=== PATIENT | male | born 1940 | race American Indian/Alaskan Native ===

== ENCOUNTER 2021-01-03 18:55 | Emergency (ER) | payer SELFPAY ==
[2021-01-03 19:26] VITALS: BP 151/55
--- NOTE | 2021-01-03 19:47 | Emergency Department Report ---
ED General Adult HPI - General Chief complaint: Extremity Injury, Lower Stated complaint: DRAINAGE TO LEFT FOOT PUI?: No Time Seen by Provider: 01/03/21 19:04 Source: patient, EMS, RN notes reviewed, old records reviewed Mode of arrival: Stretcher Limitations: Physical Limitation - History of Present Illness Initial comments: The patient was evaluated in the emergency department for symptoms described in the history of present illness. He/she was evaluated in the context of the global COVID-19 pandemic, which necessitated consideration that the patient might be at risk for infection with the virus that causes COVID-19. I nstitutional protocols and algorithms that pertain to the evaluation of patients at risk for COVID-19 are in a state of rapid change based on information released by regulatory bodies including the CDC and federal and state organizations. These policies and algorithms were followed during the patient's care in the emergency department. Please note that these policies, procedures and recommendations changed on a rapid basis. The patient is an 80-year-old gentleman. He is not known to myself previously. He apparently has a history of "memory issues", diabetes, elephantiasis, and a chronic left lower extremity wound. The patient was referred to the emergency room by local family practice/primary care nurse practitioner for chronic and asymptomatic left lower extremity wound. Apparently, this was the patient's first visit with this provider. The patient denies headache, neck pain, chest pain, abdominal pain. He has chronic shortness of breath which is not a new, worsened or different, and exacerbated when he simply "gets up and walks around." Patient reports he is typically ambu latory with a cane or a walker. Patient reports that he has a chronic diagnosis of wound to his left lower extremity, as well as elephantiasis. He was previously being seen at the [facility]. It is not known if the primary care provider that he had today had access to his old medical records. The patient states his left lower extremity appears to be at baseline. He denies fever, pain, redness, pus, streaking, and new/different discharge. He denies loss of taste and smell, urinary symptoms, hematemesis and bright red blood per rectum. The patient himself endorses no acute medical complaints. -: week(s), month(s) Location: left, lower extremity Consistency: constant Improves with: none Worsens with: none Associated Symptoms: denies other symptoms - Related Data Home Medications Medication Instructions Recorded Confirmed Last Taken Amlodipine Benzoate [Katerzia] 10 mg PO DAILY 01/03/21 01/03/21 Unknown Aspirin [Adult Aspirin] 81 mg PO DAILY 01/03/21 01/03/21 Unknown Atorvastatin Calcium [Lipitor] 80 mg PO DAILY 01/03/21 01/03/21 Unknown Cyanocobalamin [Vitamin B-12] 1,000 mg PO DAILY 01/03/21 01/03/21 Unknown Finasteride 5 mg PO DAILY 01/03/21 01/03/21 Unknown Insulin Aspart (Nf) [Novolog 5 unit SQ TID 01/03/21 01/03/21 Unknown Flexpen] Insulin Glargine,Hum.rec.anlog 20 unit SQ HS 01/03/21 01/03/21 Unknown [Lantus Solostar] Omeprazole 20 mg PO DAILY 01/03/21 01/03/21 Unknown Quetiapine Fumarate [SEROquel XR] 12.5 mg PO DAILY 01/03/21 01/03/21 Unknown Tamsulosin [Flomax] 0.4 mg PO BID 01/03/21 01/03/21 Unknown carvediloL [Coreg] 3.125 mg PO BID 01/03/21 01/03/21 Unknown Previous Rx's Medication Instructions Recorded Last Taken Type Docusate Sodium [Colace] 100 mg PO BID PRN #30 capsule 01/03/21 Unknown Rx Ferrous Sulfate [Iron 325 MG] 325 mg PO BID #60 tablet 01/03/21 Unknown Rx Magnesium Oxide 400 mg PO QDAY #30 tablet 01/03/21 Unknown Rx Allergies Allergy/AdvReac Type Severity Reaction Status Date / Time No Known Allergies Allergy Verified 01/03/21 19:48 ED Review of Systems ROS: Stated complaint: DRAINAGE TO LEFT FOOT Other details as noted in HPI Constitutional: denies: fever Eyes: denies: eye discharge ENT: denies: epistaxis Respiratory: denies: cough, wheezing Cardiovascular: denies: chest pain Gastrointestinal: denies: abdominal pain, nausea, vomiting, hematemesis, melena, hematochezia Genitourinary: denies: dysuria Musculoskeletal: joint swelling, other (Chronic left lower extremity swelling, discoloration) Skin: other (Chronic discoloration) Neurological: weakness (Chronic) Hematological/Lymphatic: denies: easy bleeding ED Past Medical Hx - Past Medical History Previous Medical History?: Yes Hx Hypertension: Yes Hx Diabetes: Yes (Type 2) Additional medical history: Cellulitis left lower ext, Gastro Reflux, Hyperlipidemia, Prostatic hyperplasia, - Surgical History Past Surgical History?: No - Social History Smoking Status: Former Smoker Substance Use Type: None - Medications Home Medications: Home Medications Medication Instructions Recorded Confirmed Last Taken Type Amlodipine Benzoate [Katerzia] 10 mg PO DAILY 01/03/21 01/03/21 Unknown History Aspirin [Adult Aspirin] 81 mg PO DAILY 01/03/21 01/03/21 Unknown History Atorvastatin Calcium [Lipitor] 80 mg PO DAILY 01/03/21 01/03/21 Unknown History Cyanocobalamin [Vitamin B-12] 1,000 mg PO DAILY 01/03/21 01/03/21 Unknown History Docusate Sodium [Colace] 100 mg PO BID PRN #30 capsule 01/03/21 Unknown Rx Ferrous Sulfate [Iron 325 MG] 325 mg PO BID #60 tablet 01/03/21 Unknown Rx Finasteride 5 mg PO DAILY 01/03/21 01/03/21 Unknown History Insulin Aspart (Nf) [Novolog 5 unit SQ TID 01/03/21 01/03/21 Unknown History Flexpen] Insulin Glargine,Hum.rec.anlog 20 unit SQ HS 01/03/21 01/03/21 Unknown History [Lantus Solostar] Magnesium Oxide 400 mg PO QDAY #30 tablet 01/03/21 Unknown Rx Omeprazole 20 mg PO DAILY 01/03/21 01/03/21 Unknown History Quetiapine Fumarate [SEROquel XR] 12.5 mg PO DAILY 01/03/21 01/03/21 Unknown History Tamsulosin [Flomax] 0.4 mg PO BID 01/03/21 01/03/21 Unknown History carvediloL [Coreg] 3.125 mg PO BID 01/03/21 01/03/21 Unknown History ED Physical Exam - General Limitations: No Limitations General appearance: alert, in no apparent distress - Head Head exam: Present: atraumatic, normocephalic - Eye Eye exam: Present: normal appearance, EOMI. Absent: nystagmus - ENT ENT exam: Present: normal exam, normal orophraynx, mucous membranes moist, normal external ear exam - Neck Neck exam: Present: normal inspection, full ROM. Absent: tenderness, me ningismus - Respiratory Respiratory exam: Present: normal lung sounds bilaterally. Absent: respiratory distress, wheezes, rales, rhonchi, stridor, decreased breath sounds - Cardiovascular Cardiovascular Exam: Present: regular rate, normal rhythm, normal heart sounds. Absent: bradycardia, tachycardia, irregular rhythm, systolic murmur, diastolic murmur, rubs, gallop - GI/Abdominal GI/Abdominal exam: Present: soft, normal bowel sounds. Absent: distended, tenderness, guarding, rebound, rigid, pulsatile mass - Rectal Rectal exam: Present: deferred - Extremities Exam Extremities exam: Present: full ROM, normal capillary refill, pedal edema, other (2+ pulses noted in the bilateral upper and lower extremities. There is no palpable cord. negative Homans sign. Muscular compartments are soft. The pelvis is stable.). Absent: normal inspection (Bilateral upper extremities and right lower extremity within normal limits. Left lower extremity shows chronic wound, hyperpigmentation. There is no redness, pus or streaking. There is minimal serous discharge noted on the medial aspect of the left lower extremity. The muscular compartments are ), calf tenderness - Back Exam Back exam: Present: normal inspection. Absent: tenderness, CVA tenderness (R), CVA tenderness (L), paraspinal tenderness, vertebral tenderness - Neurological Exam Neurological exam: Present: alert, oriented X3, other (No facial droop. Tongue midline. Extraocular movements intact bilaterally. Facial sensation intact to light touch in V1, V2, V3 distribution bilaterally. 5 and a 5 strength in 4 extremities. Sensation intact to light touch in 4 extremities.). Absent: motor sensory deficit - Psychiatric Psychiatric exam: Present: flat affect - Skin Skin exam: Present: warm. Absent: rash ED Course Vital Signs 01/03/21 19:13 Temperature 98.8 F Pulse Rate 63 Respiratory 17 Rate Blood Pressure 151/55 O2 Sat by Pulse 99 Oximetry ED Medical Decision Making - Lab Data Result diagrams: 01/03/21 20:01 01/03/21 20:01 Vital Signs 01/03/21 19:13 Temperature 98.8 F Pulse Rate 63 Respiratory 17 Rate Blood Pressure 151/55 O2 Sat by Pulse 99 Oximetry Lab Results 02/24/21 02/24/21 Range/Units 20:01 20:01 WBC 9.9 (4.5-11.0) K/mm3 RBC 2.44 L (3.65-5.03) M/mm3 Hgb 8.0 L (11.8-15.2) gm/dl Hct 23.4 L (35.5-45.6) % MCV 96 H (84-94) fl MCH 33 H (28-32) pg MCHC 34 (32-34) % RDW 14.6 (13.2-15.2) % Plt Count 274 (140-440) K/mm3 Sodium 136 L (137-145) mmol/L Potassium 3.8 (3.6-5.0) mmol/L Chloride 107.1 H (98-107) mmol/L Carbon Dioxide 21 L (22-30) mmol/L Anion Gap 12 mmol/L BUN 15 (9-20) mg/dL Creatinine 1.3 (0.8-1.3) mg/dL Estimated GFR > 60 ml/min BUN/Creatinine Ratio 12 % Glucose 236 H (75-100) mg/dL Calcium 8.0 L (8.4-10.2) mg/dL Magnesium 1.60 L (1.7-2.3) mg/dL Total Creatine Kinase 100 (55-170) units/L - Medical Decision Making Differential diagnosis, including but not limited to: Chronic wound, general medical exam Assessment and plan: 80-year-old gentleman, who was afebrile, with reassuring vital signs, with a chronic wound to his left lower extremity, referred to the emergency room for unclear reasons, this wound does not appear to be infected, there is no redness, pus, streaking, there is minimal serous discharge. He has equal pulses on palpation, and through Doppler bedside interrogation, has a brisk triphasic waveform on his left lower extremity/dorsalis pedis distribution. His examination, history and physical are not consistent with an acute wound that would require IV antibiotics, emergent surgical intervention, or emergent imaging. This is most likely the natural history of the patient's wound. Wound dressing to be applied, case management consult ordered, patient may benefit from outpatient wound care follow-up, and wound services. Laboratory studies demonstrated asymptomatic anemia, iron sulfate supplementation prescribed, no need to follow-up with a primary care doctor for this, also found to have very mild hypomagnesemia, he will be given magnesium supplementation. This patient was observed in the ER for a few hours without c linical decompensation, or change in clinical status, he is suitable to follow- up with an outpatient primary care doctor and/or verification specialist. Critical care attestation.: If time is entered above; I have spent that time in minutes in the direct care of this critically ill patient, excluding procedure time. ED Disposition Clinical Impression: Hypomagnesemia, Elephantiasis Leg wound, left Qualifiers: Encounter type: initial encounter Qualified Code(s): S81.802A - Unspecified open wound, left lower leg, initial encounter Anemia Qualifiers: Anemia type: unspecified type Qualified Code(s): D64.9 - Anemia, unspecified Disposition: TO HOME OR SELFCARE Is pt being admited?: No Does the pt Need Aspirin: No Condition: Good Instructions: Hypomagnesemia, Wound Care, Adult, Lymphedema Additional Instructions: Please continue current outpatient medications. We recommend patient follow-up with a primary care doctor, such as Dr. Orta, Within the next 5 to 7 days. Patient should be followed up for mild anemia, and low magnesium level. Patient has been prescribed magnesium supplementation, as well as iron sulfate. Iron sulfate may cause constipation, black tarry stools, and abdominal cramping. Therefore, patient has also been prescribed Colace. The patient's left lower extremity does not appear to be acutely infected or acutely decompensated at this time. The patient's left lower extremity should have follow-up with an outpatient wound care doctor, such as Dr. Boyd. Dr. Boyd works in the local wound care [facility] at this hospital. We recommend follow-up with Dr. Boyd or technical specialist cytogenetics within the next 5 to 7 days. Please return to the emergency room right away with new pain, worsened pain, migration of pain, projectile vomiting, change in mental status, confusion, inability to tolerate liquid feeds, new, worsened or different symptoms not present on the initial emergency room evaluation. Prescriptions: Docusate Sodium [Colace] 100 mg PO BID PRN #30 capsule PRN Reason: Constipation Ferrous Sulfate [Iron 325 MG] 325 mg PO BID #60 tablet Magnesium Oxide 400 mg PO QDAY #30 tablet Referrals: MEGA BOYD MD [Staff Physician] - 3-5 Days JACKSON ORTA MD [Staff Physician] - 3-5 Days [facility] - 3-5 Days
[2021-01-03 20:22] LABS: Hematocrit 23.4 % (35.5-45.6); Mean Corpuscular HGB Conc 34 % (32-34); Mean Corpuscular Volume 96 fl (84-94); Platelet Count 274 K/mm3 (140-440); Red Blood Count 2.44 M/mm3 (3.65-5.03); Red Cell Distribution Width 14.6 % (13.2-15.2)
[2021-01-03 20:45] LABS: BUN/Creatinine Ratio 12; Blood Urea Nitrogen 15 mg/dL (9-20); Hemolysis Index 4
[2021-01-03] MEDS ORDERED: MAGNESIUM OXIDE 400 MG TAB PO STA (21:15)
[2021-01-03] MEDS ORDERED: FERROUS SULFATE 325 MG TAB PO ONE (21:15)
== END 2021-01-03 22:00 | disposition home or self-care (01) ==
LOC: ED 18:55
DX: S81.802A Unspecified open wound, left lower leg, initial encounter (principal); E83.42 Hypomagnesemia; I89.0 Lymphedema, not elsewhere classified; D64.9 Anemia, unspecified; I10 Essential (primary) hypertension; E11.9 Type 2 diabetes mellitus without complications; Z87.891 Personal history of nicotine dependence; Z79.82 Long term (current) use of aspirin; Z79.899 Other long term (current) drug therapy; X58.XXXA Exposure to other specified factors, initial encounter; Y93.89 Activity, other specified; Y92.89 Other specified places as the place of occurrence of the external cause; Y99.8 Other external cause status
CPT/HCPCS: 36415; 80048; 82550; 83735; 85027; 99283

== ENCOUNTER 2021-08-30 23:12 | Emergency (ER) | payer MEDICARE ==
[2021-08-31] MEDS ORDERED: ONDANSETRON 4 MG/2 ML INJ IV ONE (01:18)
[2021-08-31] MEDS ORDERED: HYDROmorphone 1 MG/1 ML INJ IV ONE ×2 (01:18→02:39)
--- NOTE | 2021-08-31 01:23 | Emergency Department Report ---
ED Fall HPI - General Chief Complaint: Fall Stated Complaint: FALL/LEFT THIGH PAIN Time Seen by Provider: 08/31/21 01:20 Source: patient, EMS Mode of arrival: Stretcher Limitations: Physical Limitation - History of Present Illness Initial Comments: Patient is an 81-year-old male who presents emergency room for a fall and left hip and left thigh pain. Patient states he fell and hit the left side of his hip and left upper leg. Patient states the pain is 10/10. Patient states the pain is worse with movement and palpation. Patient states the pain is better with remaining still. Patient denies other injury. Patient denies loss of consciousness. Patient denies recent travel. Patient denies recent international travel. Patient denies exposure to the novel coronavirus. Patient denies sick contacts. Patient denies fever and chills. Patient denies cough. Patient denies diarrhea. Patient denies coming in contact with anybody with symptoms of the novel coronavirus. Patient presents from a [facility]. Patient lives in a memory care facility. Patient has history of Alzheimer's. Patient is currently at baseline. MD Complaint: fall -: Sudden - Related Data Home Medications Medication Instructions Recorded Confirmed Last Taken Amlodipine Benzoate [Katerzia] 10 mg PO DAILY 01/03/21 01/03/21 Unknown Aspirin [Adult Aspirin] 81 mg PO DAILY 01/03/21 01/03/21 Unknown Atorvastatin Calcium [Lipitor] 80 mg PO DAILY 01/03/21 01/03/21 Unknown Cyanocobalamin [Vitamin B-12] 1,000 mg PO DAILY 01/03/21 01/03/21 Unknown Finasteride 5 mg PO DAILY 01/03/21 01/03/21 Unknown Insulin Aspart (Nf) [Novolog 5 unit SQ TID 01/03/21 01/03/21 Unknown Flexpen] Insulin Glargine,Hum.rec.anlog 20 unit SQ HS 01/03/21 01/03/21 Unknown [Lantus Solostar] Omeprazole 20 mg PO DAILY 01/03/21 01/03/21 Unknown Quetiapine Fumarate [SEROquel XR] 12.5 mg PO DAILY 01/03/21 01/03/21 Unknown Tamsulosin [Flomax] 0.4 mg PO BID 01/03/21 01/03/21 Unknown carvediloL [Coreg] 3.125 mg PO BID 01/03/21 01/03/21 Unknown Previous Rx's Medication Instructions Recorded Last Taken Type Docusate Sodium [Colace] 100 mg PO BID PRN #30 capsule 01/03/21 Unknown Rx Ferrous Sulfate [Iron 325 MG] 325 mg PO BID #60 tablet 01/03/21 Unknown Rx Magnesium Oxide 400 mg PO QDAY #30 tablet 01/03/21 Unknown Rx traMADoL [Ultram 50 MG tab] 50 mg PO Q4HR PRN #12 tablet 08/31/21 Unknown Rx Allergies Allergy/AdvReac Type Severity Reaction Status Date / Time No Known Allergies Allergy Verified 01/03/21 19:48 ED Review of Systems ROS: Stated complaint: FALL/LEFT THIGH PAIN Other details as noted in HPI Constitutional: denies: chills, fever Eyes: denies: eye pain, eye discharge, vision change ENT: denies: ear pain, throat pain Respiratory: denies: cough, shortness of breath, wheezing Cardiovascular: denies: chest pain, palpitations Endocrine: no symptoms reported Gastrointestinal: denies: abdominal pain, nausea, diarrhea Genitourinary: denies: urgency, dysuria Musculoskeletal: denies: back pain, joint swelling, arthralgia Skin: denies: rash, lesions Neurological: denies: headache, weakness, paresthesias Psychiatric: denies: anxiety, depression Hematological/Lymphatic: denies: easy bleeding, easy bruising ED Past Medical Hx - Past Medical History Previous Medical History?: Yes Hx Hypertension: Yes Hx Diabetes: Yes (Type 2) Hx Dementia: Yes Additional medical history: Cellulitis left lower ext, Gastro Reflux, Hyperlipidemia, Prostatic hyperplasia, anemia - Surgical History Past Surgical History?: Yes - Family History Family history: no significant - Social History Smoking Status: Former Smoker Substance Use Type: None - Medications Home Medications: Home Medications Medication Instructions Recorded Confirmed Last Taken Type Amlodipine Benzoate [Katerzia] 10 mg PO DAILY 01/03/21 01/03/21 Unknown History Aspirin [Adult Aspirin] 81 mg PO DAILY 01/03/21 01/03/21 Unknown History Atorvastatin Calcium [Lipitor] 80 mg PO DAILY 01/03/21 01/03/21 Unknown History Cyanocobalamin [Vitamin B-12] 1,000 mg PO DAILY 01/03/21 01/03/21 Unknown Histor y Docusate Sodium [Colace] 100 mg PO BID PRN #30 capsule 01/03/21 Unknown Rx Ferrous Sulfate [Iron 325 MG] 325 mg PO BID #60 tablet 01/03/21 Unknown Rx Finasteride 5 mg PO DAILY 01/03/21 01/03/21 Unknown History Insulin Aspart (Nf) [Novolog 5 unit SQ TID 01/03/21 01/03/21 Unknown History Flexpen] Insulin Glargine,Hum.rec.anlog 20 unit SQ HS 01/03/21 01/03/21 Unknown History [Lantus Solostar] Magnesium Oxide 400 mg PO QDAY #30 tablet 01/03/21 Unknown Rx Omeprazole 20 mg PO DAILY 01/03/21 01/03/21 Unknown History Quetiapine Fumarate [SEROquel XR] 12.5 mg PO DAILY 01/03/21 01/03/21 Unknown History Tamsulosin [Flomax] 0.4 mg PO BID 01/03/21 01/03/21 Unknown History carvediloL [Coreg] 3.125 mg PO BID 01/03/21 01/03/21 Unknown History traMADoL [Ultram 50 MG tab] 50 mg PO Q4HR PRN #12 tablet 08/31/21 Unknown Rx ED Physical Exam - General Limitations: Altered Mental Status General appearance: alert, in no apparent distress - Head Head exam: Present: atraumatic, normocephalic - Eye Eye exam: Present: normal appearance - ENT ENT exam: Present: mucous membranes moist - Neck Neck exam: Present: normal inspection - Respiratory Respiratory exam: Present: normal lung sounds bilaterally. Absent: respiratory distress - Cardiovascular Cardiovascular Exam: Present: regular rate, normal rhythm. Absent: systolic murmur, diastolic murmur, rubs, gallop - GI/Abdominal GI/Abdominal exam: Present: soft, normal bowel sounds - Rectal Rectal exam: Present: deferred - Extremities Exam Extremities exam: Present: other (Left lower leg chronic changes noted from a previous injury. Tenderness to palpation in the left thigh and hip.) - Back Exam Back exam: Present: normal inspection - Neurological Exam Neurological exam: Present: alert, altered (Patient is oriented x2. Patient is oriented to person and place. Patient is disoriented to time.) - Psychiatric Psychiatric exam: Present: normal affect, normal mood - Skin Skin exam: Present: warm, dry, intact, normal color. Absent: rash ED Course Vital Signs 08/30/21 08/31/21 08/31/21 23:27 03:03 05:24 Temperature 99.0 F Pulse Rate 77 Respiratory 18 22 20 Rate Blood Pressure 157/73 [Left] O2 Sat by Pulse 99 Oximetry - Reevaluation(s) Reevaluation #1: Patient is currently crying in pain. Patient will be given Dilaudid and Zofran. 08/31/21 01:22 Reevaluation #2: Patient has had multiple doses of mainly because there is a 50% #Dilaudid. Patient states she still pain. Due to the amount of pain, the patient is having, a pelvic CT scan will be done. 08/31/21 04:18 Reevaluation #3: I discussed all results and clinical findings with patient. I discussed plan of care with patient. Patient agrees with plan of care. Patient is stable for discharge. Patient will be discharged home. Patient given discharge instructions. Patient voiced understanding of discharge instructions. 08/31/21 06:25 ED Medical Decision Making - Lab Data Result diagrams: 08/31/21 04:43 - Radiology Data Radiology results: report reviewed LEFT FEMUR 2 VIEW(S) INDICATION / CLINICAL INFORMATION: fall COMPARISON: None available. FINDINGS: BONES / JOINT(S): No acute fracture or subluxation. No significant arthritis. SOFT TISSUES: No significant abnormality. ADDITIONAL FINDINGS: None. . PELVIS 1 VIEW(S) INDICATION / CLINICAL INFORMATION: fall COMPARISON: None available. FINDINGS: BONES / JOINT(S): No acute fracture or subluxation. No significant arthritis. SOFT TISSUES: No significant abnormality. ADDITIONAL FINDINGS: None. CT ABDOMEN AND PELVIS WITHOUT CONTRAST INDICATION / CLINICAL INFORMATION: Post-fall, now with severe pelvic pain. TECHNIQUE: Axial CT images were obtained through the abdomen and pelvis without IV contrast. All CT scans at this location are performed using CT dose reduction for ALARA by means of automated exposure control. COMPARISON: None available. FINDINGS: LOWER CHEST: No significant abnormality. AORTA / ARTERIES: Mild atherosclerotic calcification without acute abnormality. IVC / VEINS: No significant abnormality. LYMPH NODES: No significant adenopathy. COLON: Diverticulosis without acute inflammation. APPENDIX: No significant abnormality. STOMACH / SMALL BOWEL: Small hiatal hernia. PERITONEUM: No free fluid. No free air. No fluid collection. LIVER: No significant abnormality. GALLBLADDER: No significant abnormality. BILE DUCTS: No significant abnormality. PANCREAS: No significant abnormality. SPLEEN: No significant abnormality. ADRENALS: No significant abnormality. RIGHT KIDNEY / URETER: No significant abnormality. LEFT KIDNEY / URETER: No significant abnormality. URINARY BLADDER: No significant abnormality. REPRODUCTIVE ORGANS: Prostate is enlarged. SKELETAL SYSTEM: Scattered degeneration. No acute osseous abnormality. ADDITIONAL FINDINGS: Mild subcutaneous edema/induration of the left thigh and hip. IMPRESSION: 1. No acute osseous abnormality. 2. Mild soft tissue induration/edema of the left proximal thigh and hip. 3. Other findings as above. - Medical Decision Making Patient is an 81-year-old male who presents emergency room for severe left hip pain and left thigh pain. Patient fell at his nursing facility. Patient had plain film x-rays and the x-rays are negative for acute findings and fractures. Patient continued to complain of severe pain and required multiple dose of Dilaudid. In order to rule out a occult pelvic fracture or hip fracture, a CT scan of the pelvis was done. CT scan showed no acute fracture. Patient is stable for discharge. Patient requiring further emergency medical service. P atient is stable to be discharged back to his [facility]. Patient not require inpatient services. I discussed all results and clinical findings with patient. I discussed plan of care with patient. Patient agrees with plan of care. Patient is stable for discharge. Patient will be discharged home. Patient given discharge instructions. Patient voiced understanding of discharge instructions. - Differential Diagnosis Fall, pelvic pain, hip pain, thigh pain, strain, sprain, contusion, fractur Critical care attestation.: If time is entered above; I have spent that time in minutes in the direct care of this critically ill patient, excluding procedure time. ED Disposition Clinical Impression: Left hip pain, Left thigh pain, Pelvic pain Fall Qualifiers: Encounter type: initial encounter Qualified Code(s): W19.XXXA - Unspecified fall, initial encounter Contusion of left hip Qualifiers: Encounter type: initial encounter Qualified Code(s): S70.02XA - Contusion of left hip, initial encounter Anemia Qualifiers: Anemia type: unspecified type Qualified Code(s): D64.9 - Anemia, unspecified Disposition: HOME / SELF CARE / HOMELESS Is pt being admited?: No Does the pt Need Aspirin: No Condition: Stable Instructions: Hip Pain, Contusion, [id number] Additional Instructions: Patient to be discharged back to his [facility]. Patient to follow-up with primary care in 2 to 3 days. Patient to follow-up [facility] orthopedist in 2 to 3 days. Patient to rest. Patient to increase water. Patient to avoid strenuous exercise or heavy lifting until cleared by orthopedist. Patient to take Tylenol or ibuprofen as needed for pain. Patient to take meds as directed. Patient to return to the ER if condition worsens, changes or new symptoms arise. Prescriptions: traMADoL [Ultram 50 MG tab] 50 mg PO Q4HR PRN #12 tablet PRN Reason: Pain Referrals: [facility] [Other] - 2-3 Days Time of Disposition: 06:33
[2021-08-31] MEDS ORDERED: HYDROmorphone 1 MG/1 ML INJ IM ONE (02:39)
--- NOTE | 2021-08-31 03:22 | XRay Report ---
LEFT FEMUR 2 VIEW(S) INDICATION / CLINICAL INFORMATION: fall COMPARISON: None available. FINDINGS: BONES / JOINT(S): No acute fracture or subluxation. No significant arthritis. SOFT TISSUES: No significant abnormality. ADDITIONAL FINDINGS: None. Signer Name: Heath Ortiz DO Signed: 08/31/2021 3:18 AM Workstation Name: [id number]
--- NOTE | 2021-08-31 03:23 | XRay Report ---
PELVIS 1 VIEW(S) INDICATION / CLINICAL INFORMATION: fall COMPARISON: None available. FINDINGS: BONES / JOINT(S): No acute fracture or subluxation. No significant arthritis. SOFT TISSUES: No significant abnormality. ADDITIONAL FINDINGS: None. Signer Name: Heath Ortiz DO Signed: 08/31/2021 3:18 AM Workstation Name: [id number]
[2021-08-31] MEDS ORDERED: HYDROmorphone 1 MG/1 ML INJ ONE (05:08)
[2021-08-31] MEDS ORDERED: HYDROmorphone 1 MG/1 ML INJ IV PRN (05:23)
[2021-08-31 06:10] LABS: Hemoglobin 9.8 gm/dl (11.8-15.2); Mean Corpuscular HGB Conc 33 % (32-34); Mean Corpuscular Volume 95 fl (84-94); Platelet Count 174 K/mm3 (140-440); Red Blood Count 3.15 M/mm3 (3.65-5.03); Red Cell Distribution Width 13.9 % (13.2-15.2)
--- NOTE | 2021-08-31 06:13 | Cat Scan Report ---
CT ABDOMEN AND PELVIS WITHOUT CONTRAST INDICATION / CLINICAL INFORMATION: Post-fall, now with severe pelvic pain. TECHNIQUE: Axial CT images were obtained through the abdomen and pelvis without IV contrast. All CT scans at this location are performed using CT dose reduction for ALARA by means of automated exposure control. COMPARISON: None available. FINDINGS: LOWER CHEST: No significant abnormality. AORTA / ARTERIES: Mild atherosclerotic calcification without acute abnormality. IVC / VEINS: No significant abnormality. LYMPH NODES: No significant adenopathy. COLON: Diverticulosis without acute inflammation. APPENDIX: No significant abnormality. STOMACH / SMALL BOWEL: Small hiatal hernia. PERITONEUM: No free fluid. No free air. No fluid collection. LIVER: No significant abnormality. GALLBLADDER: No significant abnormality. BILE DUCTS: No significant abnormality. PANCREAS: No significant abnormality. SPLEEN: No significant abnormality. ADRENALS: No significant abnormality. RIGHT KIDNEY / URETER: No significant abnormality. LEFT KIDNEY / URETER: No significant abnormality. URINARY BLADDER: No significant abnormality. REPRODUCTIVE ORGANS: Prostate is enlarged. SKELETAL SYSTEM: Scattered degeneration. No acute osseous abnormality. ADDITIONAL FINDINGS: Mild subcutaneous edema/induration of the left thigh and hip. IMPRESSION: 1. No acute osseous abnormality. 2. Mild soft tissue induration/edema of the left proximal thigh and hip. 3. Other findings as above. Signer Name: Heath Ortiz DO Signed: 08/31/2021 6:09 AM Workstation Name: [id number]
[2021-08-31 06:36] LABS: Alanine Aminotransferase 10 units/L (7-56); Albumin 3.6 g/dL (3.9-5); BUN/Creatinine Ratio 15; Blood Urea Nitrogen 20 mg/dL (9-20); Calcium 8.4 mg/dL (8.4-10.2); Hemolysis Index 15
[2021-08-31 08:27] VITALS: BP 157/68
== END 2021-08-31 08:30 | disposition home or self-care (01) ==
LOC: ED 23:12
DX: S70.02XA Contusion of left hip, initial encounter (principal); M79.652 Pain in left thigh; R10.2 Pelvic and perineal pain; D64.9 Anemia, unspecified; I10 Essential (primary) hypertension; E11.8 Type 2 diabetes mellitus with unspecified complications; F03.90 Unspecified dementia, unspecified severity, without behavioral disturbance, psychotic disturbance, mood disturbance, and anxiety; E78.5 Hyperlipidemia, unspecified; N40.0 Benign prostatic hyperplasia without lower urinary tract symptoms; Z98.890 Other specified postprocedural states; Z87.891 Personal history of nicotine dependence; W19.XXXA Unspecified fall, initial encounter; Y93.89 Activity, other specified; Y92.89 Other specified places as the place of occurrence of the external cause; Y99.8 Other external cause status
CPT/HCPCS: 36415; 72170; 73552; 74176; 80053; 85027; 96374; 96375; 96376; 99285; J1170; J2405; 99284